=== PATIENT | male | born 1970 | race Caucasian/White ===

== ENCOUNTER → 2023-02-27 | Day surgery (SDC) | payer OTHER ==
[~2023-02-27] VITALS: Ht 182.9 cm; Wt 115.2 kg
[~2023-02-27] MED LIST: ATOR1TAB19 PO; CIPR500T19 PO; CYMB60CA4 PO; D 1010002 PO; HYDR-3713 PO; LIDOCAINE 2% 100MG/5ML SDV (FOR ANES.) As Ordered ONE; MOBI4TAB PO; NS 1,000 ML IV ONE; TYLE325T5 PO; mobic OR; propofoL 200 MG/20 ML VIAL As Ordered ONE
[2023-02-27 09:54] VITALS: TEMP 96.8
[2023-02-27 10:15] VITALS: BP 126/73; O2SAT 97
== END | disposition home or self-care (01) ==
LOC: M OPP 08:00
PROVIDERS: ATTEND Internal Medicine Gastroenterology
DX: Z12.11 Encounter for screening for malignant neoplasm of colon (principal); Z12.12 Encounter for screening for malignant neoplasm of rectum; D12.7 Benign neoplasm of rectosigmoid junction; D12.3 Benign neoplasm of transverse colon; D12.2 Benign neoplasm of ascending colon; K64.8 Other hemorrhoids; Z90.49 Acquired absence of other specified parts of digestive tract; E78.00 Pure hypercholesterolemia, unspecified; G47.33 Obstructive sleep apnea (adult) (pediatric); Z79.899 Other long term (current) drug therapy